=== PATIENT | female | born 1995 | race Two or more races ===

== ENCOUNTER 2024-10-01 18:40 | Emergency (ER) | payer OTHER, BC ==
[~2024-10-01] VITALS: Ht 162.6 cm; Wt 61.2 kg
[2024-10-01 19:28] VITALS: BP 127/85; TEMP 98; O2SAT 99
[2024-10-01] MEDS ORDERED: ACET325T53 PO (19:41)
[2024-10-01] MEDS ORDERED: IBUP-1490 PO (19:41)
== END 2024-10-01 19:49 | disposition home or self-care (01) ==
LOC: ER 18:45
DX: M54.50 Low back pain, unspecified (principal); V43.52XA Car driver injured in collision with other type car in traffic accident, initial encounter; Y93.89 Activity, other specified; Y92.488 Other paved roadways as the place of occurrence of the external cause; Y99.8 Other external cause status